=== PATIENT | female | born 1950 | race Caucasian/White ===

== ENCOUNTER → 2018-10-12 12:30 | Day surgery (SDC) | payer BC, MEDICARE ==
[~2018-10-12 12:30] MED LIST: Betamethasone INJ* 6 MG/ML 5 ML VIAL (30 MG) ONE; Buffered Lidocaine 1% SYRIN* 1 ML/SYRINGE INTRADERM ONE; Dexamethasone IV* 4 MG/ML 1 ML (4 MG) ONE; Dexamethasone TAB* 4 MG ONE; Dexamethasone TAB* 4 MG PO ONE; DiMENhydriNATE IV* 50 MG/ML VIAL IV PUSH PRN; DiMENhydriNATE IV* 50 MG/ML VIAL ONE; Famotidine IV* 10 MG/ML 2 ML (20 mg) IV ONE; Famotidine IV* 10 MG/ML 2 ML (20 mg) ONE; HYDROcodone/ACETAMIN 5-325 MG* 1 TAB ONE; KETAMINE HCL* 50 MG/ML 10 ML VIAL ONE; Ketorolac INJ* 30 MG/ML 1 ML VIAL ONE; Lactated Ringers 1000 ML Bag* 1,000 ML IV SCH; Lidocaine 1% INJ* 10 MG/ML 30 ML SDV ONE; Lidocaine 2% PF * 5 ML VIAL ONE; Midazolam* 1 MG/ML 5 ML VIAL (5 MG) ONE; Morphine VIAL* 4 MG/ML VIAL (1 ml vial) IV PRN; Naloxone* 0.4 MG/ML 1 ML VIAL IV PRN; Ondansetron INJ* 2 MG/ML VIAL ONE; Ondansetron ODT TAB* 4 MG ONE; PROCHLORPERAZINE INJ 5 MG/ML 2 ML VIAL IV PRN; Propofol* 10 MG/ML 20 ML BTL ONE; ceFAZolin 2 GM PREMIX in ORs 2 GM/50 ML BAG IVPB ONE; fentaNYL* 50 MCG/ML 2 ML VIAL (100 MCG VIAL) ONE; oxyCODONE/Acetamin 5/325 MG* TAB PO PRN
[2018-10-12] MEDS: fentaNYL* 50 MCG/ML 2 ML VIAL (100 MCG VIAL) IV PRN ×3 (19:16→19:34)
[2018-10-12 20:58] VITALS: BP 137/63
--- NOTE | 2018-10-19 21:24 | OP ---
DATE OF OPERATION: 10/12/18 - [facility] DATE OF : 50 SURGEON: Trae Shetty MD AGRICULTURAL EDUCATION PROFESSOR: BROOKLYN Reid. An business services assistant was needed for the entirety of the procedure to aid in positioning of the arm and retraction. ANESTHESIOLOGIST: Dr. Zhao. ANESTHESIA: General. PRE-OP DIAGNOSES: 1. 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 2. Severe right trigger thumb. 3. Right volar wrist ganglion cyst. POST-OP DIAGNOSES: 1. 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 2. Severe right trigger thumb. 3. Enlarged arteriovenous malformation, right volar wrist. OPERATIVE PROCEDURE: 1. Right thumb carpometacarpal arthroplasty with trapeziectomy. 2. Distally based flexor carpi radialis tendon transfer for thumb suspension and tendon interposition. 3. Right trigger thumb release. INDICATIONS: Sherry has very symptomatic stage III basal joint arthritis. She also has severe trigger thumb and she has a mass right over the volar wrist flexion crease near the FCR tendon. I told her that when I harvested my tendon that would be a good time to take that mass out. The mass was poke stabbed. I thought it was just the radial artery sitting adjacent or over the top of the mass. Ultimately, she understood the risks and benefits and she wanted to proceed with surgery. ESTIMATED BLOOD LOSS: 2 mL. COMPLICATIONS: None. FINDINGS: The volar wrist mass was actually an enlarged arterial structure which was left in place. DESCRIPTION OF PROCEDURE: Sherry was seen in the preoperative holding area. The correct site, side, and procedure were identified. We came back to the operating room where the arm was prepped and draped in the usual fashion and a time-out was performed. The arm was exsanguinated with the Esmarch and the tourniquet was inflated to 250 mmHg. I first made a 1 cm transverse incision in the volar MCP joint flexion crease. Dissection was carried down and full-thickness flaps were raised off of the flexor tendon sheath. The digital nerves were protected. I released the A1 michi of the thumb. Release was completed distally and proximally with a tenotomy scissors. There was a very thickened A1 michi. There was a little bit of fraying of the tendon. Once there was no more catching , I irrigated out the wound and the skin was closed with 4-0 nylon suture. I then made a 2 to 3 cm incision over the dorsal radial thumb base. Dissection was carried down longitudinally to preserve the traversing sensory nerves. The radial artery was protected and retracted out of the way. I then performed a subperiosteal dissection to expose the entirety of the trapezium. Once I had delineated the carpometacarpal and the scaphotrapezoid and the trapeziotrapezoid joints, I went ahead and removed the trapezium in its entirety with the rongeur. The FCR tendon was preserved in the base of the wound. I then examined the scaphotrapezoid joint and that looked fine. I then created a bone tunnel from the dorsal radial aspect of the proximal metacarpal shaft and exiting out the volar ulnar articular surface near the base of the second metacarpal. I irrigated out the wound and then tuned my attention to the tendon transfer. I made a V-shaped Vance-type incision over the distal FCR tendon, also over the mass. Once I elevated the skin flap, it became obvious that that mass was a very enlarged and dilated arteriovenous malformation. I decided to leave it alone. I went ahead and mobilized and retracted it out of the way and opened up the FCR tendon sheath. I then pulled the tendon up out of the wound and split it longitudinally with a 15 blade. A 26-gauge wire was passed into the tendon split. The FCR tendon sheath was released. I came 8 cm proximal and made a second transverse incision. The tendon sheath was opened and released. I then used a Mirna clamp to pull my 26-gauge wire from the distal wound up into the proximal wound releasing the tendon at the musculotendinous junction. The muscular remnants were removed, and the end of the tendon was stitched to prevent it from fraying. I then used two 26-gauge wires to pass the free end of the tendon down to the thumb base wound. The tendon split was taken all the way to its insertion site. The free end was then passed through the bone tunnel in the base of the metacarpal back around the intact limb and then maximum tension was set as I secured the tendon transfer with three [id number] 3-0 Ethibond sutures. The first sewing all 3 of them to the tendon transfer together, the second sewing intact limb to intact limb. The remainder of the tendon was rolled up as a ball and secured with 3-0 Ethibond suture and docked as an interposition between the proximal metacarpal and the distal pole of the scaphoid. The wound was irrigated out and the capsule was closed with 3-0 Vicryl suture. The skin was closed with 4-0 nylon suture. Marcaine was infiltrated all around the operative area. The wounds were dressed with Xeroform, 4x4s, sterile Webril, and thumb spica splint was applied with the IP joint free. Tourniquet was deflated and the hand pinked up immediately. She was taken to the recovery room in stable condition. [id number] #: [id number] MTDD
== END | disposition home or self-care (01) ==
LOC: OR 12:30
PROVIDERS: ATTEND Orthopaedic Surgery Hand Surgery
DX: M18.11 Unilateral primary osteoarthritis of first carpometacarpal joint, right hand (principal); M65.311 Trigger thumb, right thumb; E78.5 Hyperlipidemia, unspecified; M19.90 Unspecified osteoarthritis, unspecified site
CPT/HCPCS: 88304; 88311; A9270-GY; J0690; J0702; J1100; J1240; J1885; J2250; J2405; J2704; J3010; J8540

== ENCOUNTER 2019-09-20 09:50 | Day surgery (SDC) | payer BC, MEDICARE ==
[~2019-09-20 09:50] MED LIST changes: -Betamethasone INJ* 6 MG/ML 5 ML VIAL (30 MG) ONE; -Dexamethasone IV* 4 MG/ML 1 ML (4 MG) ONE; -Dexamethasone TAB* 4 MG ONE; -Dexamethasone TAB* 4 MG PO ONE; -DiMENhydriNATE IV* 50 MG/ML VIAL IV PUSH PRN; -DiMENhydriNATE IV* 50 MG/ML VIAL ONE; -Famotidine IV* 10 MG/ML 2 ML (20 mg) ONE; -HYDROcodone/ACETAMIN 5-325 MG* 1 TAB ONE; -KETAMINE HCL* 50 MG/ML 10 ML VIAL ONE; -Ketorolac INJ* 30 MG/ML 1 ML VIAL ONE; -Lidocaine 1% INJ* 10 MG/ML 30 ML SDV ONE; -Lidocaine 2% PF * 5 ML VIAL ONE; -Midazolam* 1 MG/ML 5 ML VIAL (5 MG) ONE; -Morphine VIAL* 4 MG/ML VIAL (1 ml vial) IV PRN; -Naloxone* 0.4 MG/ML 1 ML VIAL IV PRN; -Ondansetron INJ* 2 MG/ML VIAL ONE; -Ondansetron ODT TAB* 4 MG ONE; -PROCHLORPERAZINE INJ 5 MG/ML 2 ML VIAL IV PRN; -Propofol* 10 MG/ML 20 ML BTL ONE; -ceFAZolin 2 GM PREMIX in ORs 2 GM/50 ML BAG IVPB ONE; -fentaNYL* 50 MCG/ML 2 ML VIAL (100 MCG VIAL) ONE; -oxyCODONE/Acetamin 5/325 MG* TAB PO PRN
[2019-09-20] MEDS ORDERED: Buffered Lidocaine 1% SYRIN* 1 ML/SYRINGE INTRADERM ONE (10:02)
[2019-09-20] MEDS ORDERED: Famotidine IV* 10 MG/ML 2 ML (20 mg) ONE (10:02)
[2019-09-20] MEDS ORDERED: Bupivacaine 0.25% SDV* 30 ML ONE (12:41)
[2019-09-20] MEDS ORDERED: Lidocaine 1% w EPI 1:200,000* SDV 30 ML VIAL ONE (12:41)
[2019-09-20] MEDS ORDERED: Propofol* 10 MG/ML 20 ML BTL ONE (12:45)
[2019-09-20] MEDS ORDERED: Midazolam* 1 MG/ML 2 ML VIAL (2 MG) ONE (12:45)
[2019-09-20] MEDS ORDERED: Ondansetron INJ* 2 MG/ML VIAL IV PRN (13:15)
[2019-09-20] MEDS ORDERED: HYDROmorphone INJ1* 1 MG/ML SYRINGE IV PRN (13:15)
[2019-09-20] MEDS ORDERED: Naloxone* 0.4 MG/ML 1 ML VIAL IV PRN (13:15)
[2019-09-20 14:00] VITALS: BP 101/87
--- NOTE | 2019-09-20 21:42 | OP ---
DATE OF OPERATION: 09/20/19 - [facility] DATE OF : 50 SURGEON: Trae Shetty MD ROPE TIER: BROOKLYN Card ANESTHESIOLOGIST: Dr. Strong. ANESTHESIA: Local MAC. PRE-OP DIAGNOSES: 1. Right middle trigger finger. 2. Right trigger thumb. 3. Right thumb metacarpophalangeal joint radial sesamoiditis. POST-OP DIAGNOSES: 1. Right middle trigger finger. 2. Right trigger thumb. 3. Right thumb metacarpophalangeal joint radial sesamoiditis. OPERATIVE PROCEDURE: 1. Right trigger thumb release. 2. Right middle trigger finger release. 3. Right thumb excision of radial sesamoid bone at the metacarpophalangeal joint. INDICATIONS: Ms. Silvestre has the above-mentioned conditions, associated pain, and stiffness and catching in the hand. We talked about treatment options. She wanted to proceed. ESTIMATED BLOOD LOSS: 2 mL. COMPLICATIONS: None. FINDINGS: See above and below. DESCRIPTION OF PROCEDURE: Ms. Silvestre was seen in the preoperative holding area. The correct side, site, and procedures were identified. We came back to the operating room. The area was anesthetized with 0.25% Marcaine. The arm was then prepped and draped in the usual fashion and time-out was performed. I first made a 1-cm longitudinal incision over the middle finger A1 michi. Dissection was carried down. Full-thickness flaps were raised. The A1 michi was incised longitudinally. Once I had completed the release distally and proximally with tenotomy scissors, I check the motion, everything was good. The A2 michi was preserved. There was no more catching. Wound was irrigated out and closed with 4- 0 nylon suture. I then raised a radially based V-shaped flap over the radial aspect of the right thumb MCP joint. Dissection was carried down. The radial sensory nerve was dissected free and retracted out of the way with a Ragnell retractor. I incised the A1 michi longitudinally. The release was completed distally and proximally. After the trigger thumb release had been performed, I used a 69 [place] blade to shell out the right thumb radial sesamoid bone. It was very degenerative and flattened. It was very arthritic on its undersurface. Once I had fully ellipsed that out, I put one 4-0 [id number] Ethibond suture side to side to close up the opening where I had excised the bone. The wound was irrigated out. The skin was closed with 4-0 nylon suture. Soft dressing was applied and she was taken to the recovery room in stable condition. [id number]/CPS #: [id number] MTDD
== END 2019-09-20 14:25 | disposition home or self-care (01) ==
LOC: OR 09:50
PROVIDERS: ATTEND Orthopaedic Surgery Hand Surgery
DX: M65.331 Trigger finger, right middle finger (principal); M65.311 Trigger thumb, right thumb; M19.041 Primary osteoarthritis, right hand; M25.841 Other specified joint disorders, right hand
CPT/HCPCS: 88304; 88311; J2001; J2250; J2704; J3490